=== PATIENT | female | born 1955 | race Caucasian/White ===

== ENCOUNTER 2017-12-15 08:58 | Day surgery (SDC) | payer OTHER ==
[~2017-12-15 08:58] MED LIST: LEVOFLOXACIN 500MG/D5W (PMX) 100 ML IVPB
[2017-12-15 10:23] LABS: ADD MAN DIFF? NO
[2017-12-15 10:26] LABS: BASOPHILS % 0.4 % (0.0-2.0); EOSINOPHILS # 0.1 10^3/ul (0.0-0.5); EOSINOPHILS % 2.2 % (0.0-7.0); HEMATOCRIT 31.3 % (37.0-47.0); HEMOGLOBIN 10.6 g/dl (12.0-16.0); LYMPHOCYTES # 1.9 10^3/ul (0.8-2.9); LYMPHOCYTES % 41.1 % (15.0-51.0); MEAN CORPUSCULAR HGB CONC 33.9 g/dl (32.0-37.0); MEAN CORPUSCULAR VOLUME 91.5 fl (82.0-101.0); MEAN PLATELET VOLUME 9.7 fl (7.4-10.4); MONOCYTE # 0.6 10^3/ul (0.3-0.9); MONOCYTES % 13.6 % (0.0-11.0); NEUTROPHIL # 1.9 10^3/ul (1.6-7.5); NEUTROPHILS % 42.5 % (39.0-77.0); PLATELET COUNT 190 10^3/UL (140-415); RED BLOOD COUNT 3.42 10^6/ul (4.20-5.40); RED CELL DISTRIBUTION WIDTH 12.9 % (11.5-14.5)
[2017-12-15 10:26] LABS: WHITE BLOOD COUNT 4.6 10^3/ul (4.8-10.8)
[2017-12-15 10:48] LABS: ANION GAP 6 (5-13); BLOOD UREA NITROGEN 11 mg/dl (7-20); CARBON DIOXIDE 28 mmol/L (21-31); CHLORIDE 107 mmol/L (97-110); CREATININE 0.58 mg/dl (0.44-1.00); Estimated GFR > 60 mL/min (>60); GLUCOSE 137 mg/dl (70-220); POTASSIUM 4.1 mmol/L (3.5-5.1); SODIUM 141 mmol/L (135-144)
[2017-12-15 10:49] LABS: ALBUMIN/GLOBULIN RATIO 1.14; ASPARTATE AMINO TRANSFERASE 20 IU/L (15-46); BILIRUBIN,INDIRECT 0.4 mg/dl (0-1.1); BILIRUBIN,TOTAL 0.4 mg/dl (0.2-1.3); CALCIUM 9.5 mg/dl (8.4-10.2); TOTAL PROTEIN 7.5 g/dl (6.1-8.1)
[2017-12-15 10:53] LABS: INR 0.95; PARTIAL THROMBOPLASTIN TIME 29.9 Sec (23.0-35.0); PROTIME 12.8 Sec (11.9-14.9)
[2017-12-15] MEDS ORDERED: MEPERIDINE 25 MG INJ IV (11:00)
[2017-12-15] MEDS ORDERED: HYDROmorphONE 1 MG/5 ML IV SYRINGE IV (11:00)
[2017-12-15] MEDS ORDERED: FENTAnyl 50 MCG/ML VIAL IV ×2 (11:00)
[2017-12-15] MEDS ORDERED: ALBUTEROL 0.083% (NEB) 2.5 MG/3 ML AMP HHN (11:00)
[2017-12-15] MEDS ORDERED: METOCLOPRAMIDE 10 MG INJ IV (11:00)
[2017-12-15] MEDS ORDERED: DIPHENHYDRAMINE 50 MG INJ IV (11:00)
[2017-12-15] MEDS ORDERED: ONDANSETRON 4 MG INJ IV (11:00)
[2017-12-15 11:15] LABS: ALANINE AMINOTRANSFERASE 18 IU/L (13-69); ALKALINE PHOSPHATASE 78 IU/L (42-121)
[2017-12-15 11:34] LABS: ERYTHROCYTE SEDIMENTATION RATE 48 mm/Hr (0-30)
[2017-12-15] MEDS ORDERED: FENTAnyl 50 MCG/ML VIAL (11:57)
[2017-12-15] MEDS: IOHEXOL 300MG/ML 30 ML BTL (12:46)
[2017-12-15] MEDS ORDERED: SUCCINYLCHOLINE CHLORIDE 100 MG/5 ML SYG IV (13:00)
[2017-12-15] MEDS ORDERED: PROPOFOL 20 ML (13:00)
[2017-12-15] MEDS ORDERED: MEROPENEM 1 GM/50ML(PMX) 50 ML IVPB (13:00)
[2017-12-15] MEDS ORDERED: ROCURONIUM 50 MG INJ (13:00)
[2017-12-15] MEDS ORDERED: SUGAMMADEX SODIUM 200 MG/2 ML VIAL IV (13:00)
[2017-12-15] MEDS ORDERED: LIDOCAINE 100 MG SYRINGE (13:00)
[2017-12-15] MEDS: HYDROmorphONE 1 MG/5 ML IV SYRINGE IV (13:35)
== END 2017-12-15 15:40 | disposition home or self-care (01) ==
LOC: SDS 08:58
DX: N13.30 Unspecified hydronephrosis (principal); N35.92 Unspecified urethral stricture, female; Z85.51 Personal history of malignant neoplasm of bladder; I10 Essential (primary) hypertension; E11.9 Type 2 diabetes mellitus without complications
CPT/HCPCS: 52204; 71045; 74430; 80053; 82962; 85025; 85610; 85651; 85730; 88305; 93005

== ENCOUNTER 2018-03-14 19:08 | Emergency (ER) | payer OTHER ==
[2018-03-14] MEDS ORDERED: FENTAnyl 50 MCG/ML VIAL IV (22:30)
[2018-03-14 22:36] LABS: ADD MAN DIFF? NO
[2018-03-14 22:45] LABS: BASOPHILS % 0.3 % (0.0-2.0); EOSINOPHILS # 0.4 10^3/ul (0.0-0.5); EOSINOPHILS % 4.7 % (0.0-7.0); HEMATOCRIT 32.2 % (37.0-47.0); HEMOGLOBIN 10.7 g/dl (12.0-16.0); LYMPHOCYTES # 2.2 10^3/ul (0.8-2.9); MEAN CORPUSCULAR HEMOGLOBIN 29.5 pg (29.0-33.0); MEAN CORPUSCULAR HGB CONC 33.2 g/dl (32.0-37.0); MEAN CORPUSCULAR VOLUME 88.7 fl (82.0-101.0); MEAN PLATELET VOLUME 9.2 fl (7.4-10.4); MONOCYTE # 0.9 10^3/ul (0.3-0.9); MONOCYTES % 9.5 % (0.0-11.0); NEUTROPHIL # 5.4 10^3/ul (1.6-7.5); NEUTROPHILS % 60.3 % (39.0-77.0); PLATELET COUNT 235 10^3/UL (140-415); RED BLOOD COUNT 3.63 10^6/ul (4.20-5.40); RED CELL DISTRIBUTION WIDTH 11.8 % (11.5-14.5)
[2018-03-14 22:50] LABS: ADD UMIC YES; UR ASCORBIC ACID NEGATIVE (NEGATIVE); UR BACTERIA FEW /HPF (NONE SEEN); UR BILIRUBIN (Dip) NEGATIVE (NEGATIVE); UR BLOOD (Dip) 3+ mg/dL (NEGATIVE); UR BUDDING YEAST MODERATE /HPF (NONE SEEN); UR CLARITY CLOUDY (CLEAR); UR COLOR YELLOW (YELLOW); UR GLUCOSE (Dip) NEGATIVE (NEGATIVE); UR KETONES (Dip) NEGATIVE (NEGATIVE); UR LEUKOCYTE ESTERASE (Dip) 3+ Leu/ul (NEGATIVE); UR MUCUS FEW /HPF (NONE SEEN); UR NITRITE (Dip) NEGATIVE (NEGATIVE); UR NONSQUAMOUS EPITHELIAL CELL 2 /HPF (NONE SEEN); UR RBC 47 /HPF (0-5); UR SPECIFIC GRAVITY (Dip) 1.011 (1.003-1.030); UR TOTAL PROTEIN (Dip) 2+ mg/dl (NEGATIVE); UR UROBILINOGEN (Dip) NEGATIVE (NEGATIVE); UR WBC > 182 /HPF (0-5)
[2018-03-14 23:05] LABS: ALANINE AMINOTRANSFERASE 9 IU/L (13-69); ALBUMIN 4.3 g/dl (3.3-4.9); ALBUMIN/GLOBULIN RATIO 1.22; ALKALINE PHOSPHATASE 88 IU/L (42-121); ANION GAP 14 (5-13); ASPARTATE AMINO TRANSFERASE 16 IU/L (15-46); BILIRUBIN,INDIRECT 0.5 mg/dl (0-1.1); BILIRUBIN,TOTAL 0.5 mg/dl (0.2-1.3); BLOOD UREA NITROGEN 14 mg/dl (7-20); CALCIUM 9.9 mg/dl (8.4-10.2); CARBON DIOXIDE 28 mmol/L (21-31); CHLORIDE 98 mmol/L (97-110); CREATININE 0.71 mg/dl (0.44-1.00); Estimated GFR > 60 mL/min (>60); GLUCOSE 145 mg/dl (70-220); LIPASE 36 U/L (23-300); POTASSIUM 4.5 mmol/L (3.5-5.1); SODIUM 140 mmol/L (135-144); TOTAL PROTEIN 7.8 g/dl (6.1-8.1)
[2018-03-14] MEDS: HYDROCODONE/APAP (5/325) TAB PO (23:12)
== END 2018-03-15 00:32 | disposition home or self-care (01) ==
LOC: E/R 03-15 00:32
DX: T83.091A Other mechanical complication of indwelling urethral catheter, initial encounter (principal); N30.01 Acute cystitis with hematuria; G89.18 Other acute postprocedural pain; I10 Essential (primary) hypertension; E11.9 Type 2 diabetes mellitus without complications; Y73.2 Prosthetic and other implants, materials and accessory gastroenterology and urology devices associated with adverse incidents; Z48.816 Encounter for surgical aftercare following surgery on the genitourinary system; Z79.82 Long term (current) use of aspirin; Z79.84 Long term (current) use of oral hypoglycemic drugs
CPT/HCPCS: 80053; 81001; 83690; 85025; 87086; 99283

== ENCOUNTER 2018-07-13 08:03 | Day surgery (SDC) | payer OTHER ==
[2018-07-13] MEDS: SOD CHLORIDE 0.9% 1,000 ML IV (10:00)
[2018-07-13] MEDS ORDERED: GENTAMICIN 160 MG in DEXTROSE 5% 100 ML IVPB (10:00)
[2018-07-13] MEDS: LACTATED RINGER'S 1,000 ML IV (10:03)
[2018-07-13] MEDS ORDERED: MIDAZOLAM 1 MG/ML 2 ML INJ (11:04)
[2018-07-13] MEDS ORDERED: PROPOFOL 20 ML (11:04)
[2018-07-13] MEDS ORDERED: SODIUM CL BACTERIOSTATIC 30 ML INJ (11:12)
[2018-07-13] MEDS ORDERED: ONDANSETRON 4 MG INJ IV (12:30)
[2018-07-13] MEDS ORDERED: KETOROLAC 30 MG INJ (12:33)
[2018-07-13] MEDS ORDERED: ONDANSETRON 4 MG INJ (12:33)
[2018-07-13] MEDS: IOHEXOL 300MG/ML 30 ML BTL (13:11)
[2018-07-13] MEDS: HYDROmorphONE 1 MG/5 ML IV SYRINGE IV (14:06)
[2018-07-13] MEDS ORDERED: HYDROCODONE/APAP (10/325) TAB PO (15:00)
== END 2018-07-13 16:25 | disposition home or self-care (01) ==
LOC: SDS 08:03
DX: C67.0 Malignant neoplasm of trigone of bladder (principal); E11.9 Type 2 diabetes mellitus without complications; I10 Essential (primary) hypertension; Z79.82 Long term (current) use of aspirin
CPT/HCPCS: 52235; 71045; 74430; 82962; 88307